=== PATIENT | male | born 1960 | race Caucasian/White ===

== ENCOUNTER 2016-06-16 17:51 | Inpatient (IN) | payer BC ==
[2016-06-16] MEDS ORDERED: ELECTROLYTE-A SOLUTION 1,000 ML IV ONE (18:20)
[2016-06-16] MEDS ORDERED: ELECTROLYTE-A SOLUTION 1,000 ML IV STA (18:20)
[2016-06-16] MEDS ORDERED: PROMETHAZINE INJ 25 MG in SODIUM CHLORIDE 0.9% 50 ML IV STA (18:34)
[2016-06-16] MEDS ORDERED: ELECTROLYTE-A SOLUTION 2,000 ML IV ONE (18:35)
[2016-06-16] MEDS ORDERED: PROMETHAZINE 25 MG/1 ML VIAL ONE (18:35)
[2016-06-16] MEDS ORDERED: INSULIN REGULAR HUMAN 100 UNIT in SODIUM CHLORIDE 0.9% 100ML 99 ML IV STA (18:41)
[2016-06-16] MEDS ORDERED: ACETAMINOPHEN 325 MG TABLET PO PRN (19:20)
[2016-06-16] MEDS ORDERED: SODIUM CHLORIDE FLUSH 0.9% 10 ML SYRINGE IVP PRN (19:20)
[2016-06-16] MEDS ORDERED: PROCHLORPERAZINE 10 MG/2 ML VIAL IVP PRN (19:20)
[2016-06-16] MEDS ORDERED: PROMETHAZINE 25 MG/1 ML VIAL IM PRN (19:20)
[2016-06-16] MEDS ORDERED: MORPHINE 2 MG/ML SYRINGE IVP PRN (19:20)
[2016-06-16] MEDS ORDERED: TEMAZEPAM 15 MG CAPSULE PO PRN (19:20)
[2016-06-16] MEDS ORDERED: INSULIN REGULAR HUMAN 100 UNIT in SODIUM CHLORIDE 0.9% 100ML 99 ML IV SCH (20:00)
[2016-06-16] MEDS ORDERED: FAMOTIDINE 20 MG/50 ML 50 ML IV SCH (21:00)
[2016-06-16] MEDS ORDERED: SODIUM BICARBONATE ABBOJECT 50 MEQ/50 ML SYRINGE IVP SCH (21:09)
[2016-06-16] MEDS ORDERED: SODIUM CHLORIDE 0.9% 1,000 ML IV ONE (21:23)
[2016-06-16] MEDS: HEPARIN 5,000 UNIT/ML VIAL SUBQ SCH (21:37)
[2016-06-16] MEDS ORDERED: SODIUM BICARBONATE 50 MEQ in SODIUM CHLORIDE 0.9% 1,000 ML IV SCH (22:00)
[2016-06-16] MEDS: FAMOTIDINE 20 MG/50 ML 50 ML IV SCH (22:33)
[2016-06-16] MEDS: SODIUM CHLORIDE FLUSH 0.9% 10 ML SYRINGE IVP SCH (23:48)
[2016-06-17] MEDS ORDERED: POTASSIUM PHOSPHATE 21 MMOL in SODIUM CHLORIDE 0.9% 250 ML IV SCH (02:21)
[2016-06-17] MEDS ORDERED: DEXTROSE 5%-0.45% NACL 1,000 ML IV ONE (03:12)
[2016-06-17] MEDS ORDERED: INSULIN REGULAR HUMAN 100 UNIT in SODIUM CHLORIDE 0.9% 100ML 99 ML IV ONE (05:26)
[2016-06-17] MEDS ORDERED: SODIUM CHLORIDE 0.9% 1,000 ML IV SCH ×3 (06:00→23:00)
[2016-06-17] MEDS ORDERED: INSULIN GLARGINE 300 UNIT/3 ML PEN SUBQ SCH (07:00)
[2016-06-17] MEDS: SODIUM CHLORIDE FLUSH 0.9% 10 ML SYRINGE IVP SCH ×3 (07:28→21:39)
[2016-06-17] MEDS ORDERED: PROMETHAZINE 25 MG/1 ML VIAL IM PRN (08:02)
[2016-06-17] MEDS: HEPARIN 5,000 UNIT/ML VIAL SUBQ SCH ×2 (08:55→20:50)
[2016-06-17] MEDS: FAMOTIDINE 20 MG/50 ML 50 ML IV SCH (08:55)
[2016-06-17] MEDS: ONDANSETRON 4 MG/2 ML VIAL IVP PRN (08:55)
[2016-06-17] MEDS: INSULIN ASPART 300 UNIT/3 ML PEN SUBQ SCH ×6 (09:06→20:49)
[2016-06-17] MEDS: INSULIN GLARGINE 300 UNIT/3 ML PEN SUBQ SCH (09:07)
[2016-06-17] MEDS ORDERED: DEXTROSE 5% 1,000 ML IV PRN ×3 (09:36→22:52)
[2016-06-17] MEDS ORDERED: DEXTROSE 50% ABBOJECT 25 GM/50 ML SYRINGE IVP PRN ×2 (09:36→22:52)
[2016-06-17] MEDS ORDERED: DEXTROSE GEL 37.5 GM TUBE PO PRN ×2 (09:36→22:52)
[2016-06-17] MEDS ORDERED: GLUCAGON 1 MG/ML VIAL SUBQ PRN ×2 (09:36→22:52)
[2016-06-17] MEDS ORDERED: POTASSIUM PHOSPHATE 15 MMOL in SODIUM CHLORIDE 0.9% 250 ML IV ONE (10:00)
[2016-06-17] MEDS ORDERED: DEXTROSE 5% 1,000 ML IV SCH (17:00)
[2016-06-17] MEDS: POTASSIUM CHLOR 10 MEQ/100 ML 100 ML IV SCH ×4 (18:15→21:37)
[2016-06-17] MEDS ORDERED: POTASSIUM CHLOR 20 MEQ/100 ML 100 ML IV SCH (19:00)
[2016-06-17] MEDS ORDERED: PHENOL THROAT SPRAY 177 ML MM PRN (19:27)
[2016-06-17] MEDS ORDERED: BENZOCAINE/MENTHOL LOZENGE MM PRN (19:27)
[2016-06-18] MEDS: INSULIN REGULAR HUMAN 100 UNIT/1 ML 10 ML MDV SUBQ SCH ×3 (00:26→12:00)
[2016-06-18] MEDS ORDERED: POTASSIUM PHOSPHATE 21 MMOL in SODIUM CHLORIDE 0.9% 250 ML IV ONE (05:49)
[2016-06-18] MEDS: SODIUM CHLORIDE FLUSH 0.9% 10 ML SYRINGE IVP SCH ×3 (06:09→21:09)
[2016-06-18] MEDS: INSULIN ASPART 300 UNIT/3 ML PEN SUBQ SCH ×5 (08:00→21:05)
[2016-06-18] MEDS: ONDANSETRON 4 MG/2 ML VIAL IVP PRN (08:04)
[2016-06-18] MEDS: HEPARIN 5,000 UNIT/ML VIAL SUBQ SCH ×2 (08:04→21:10)
[2016-06-18] MEDS: FAMOTIDINE 20 MG/50 ML 50 ML IV SCH (08:04)
[2016-06-18] MEDS: POLYETHYLENE GLYCOL 3350 17 GM PACKET PO SCH (08:11)
[2016-06-18] MEDS: INSULIN GLARGINE 300 UNIT/3 ML PEN SUBQ SCH (08:19)
[2016-06-18] MEDS ORDERED: DEXTROSE 50% ABBOJECT 25 GM/50 ML SYRINGE IVP PRN (11:17)
[2016-06-18] MEDS ORDERED: DEXTROSE 5% 1,000 ML IV PRN (11:17)
[2016-06-18] MEDS ORDERED: DEXTROSE GEL 37.5 GM TUBE PO PRN (11:17)
[2016-06-18] MEDS ORDERED: GLUCAGON 1 MG/ML VIAL SUBQ PRN (11:17)
[2016-06-19] MEDS: SODIUM CHLORIDE FLUSH 0.9% 10 ML SYRINGE IVP SCH (05:42)
[2016-06-19] MEDS: HEPARIN 5,000 UNIT/ML VIAL SUBQ SCH (07:57)
[2016-06-19] MEDS: FAMOTIDINE 20 MG/50 ML 50 ML IV SCH (07:57)
[2016-06-19] MEDS: POLYETHYLENE GLYCOL 3350 17 GM PACKET PO SCH (07:57)
[2016-06-19] MEDS: INSULIN GLARGINE 300 UNIT/3 ML PEN SUBQ SCH (08:01)
[2016-06-19] MEDS: INSULIN ASPART 300 UNIT/3 ML PEN SUBQ SCH ×2 (08:02)
== END 2016-06-19 10:42 | disposition home or self-care (01) | DRG 638 ==
DX: E10.10 Type 1 diabetes mellitus with ketoacidosis without coma (principal); N17.9 Acute kidney failure, unspecified; E87.1 Hypo-osmolality and hyponatremia; I10 Essential (primary) hypertension; E86.0 Dehydration; J02.9 Acute pharyngitis, unspecified; R74.0 Nonspecific elevation of levels of transaminase and lactic acid dehydrogenase [LDH]; R74.8 Abnormal levels of other serum enzymes; E80.7 Disorder of bilirubin metabolism, unspecified; Z79.4 Long term (current) use of insulin; Z87.891 Personal history of nicotine dependence